=== PATIENT | female | born 1980 | race Caucasian/White ===

== ENCOUNTER → 2023-07-28 08:54 | Outpatient (CLI) | payer BC, SELFPAY ==
--- NOTE | ~2023-07-28 | MR_ITS ---
EXAMINATION: MR ankle RT wo con DATE: 07/28/2023 09:41 INDICATION: Right Achilles tendon tear/rupture. TECHNIQUE: Magnetic resonance imaging (MRI) of the right ankle was performed without intravenous cont rast. Sequences included sagittal, coronal, and axial proton-density weighted fast spin echo without and with fat saturation. COMPARISON: None. FINDINGS: Medial ankle ligaments: Deep and superficial deltoid ligaments as well as the spring ligament are normal. Lateral ankle ligaments: The anterior and posterior inferior tibiofibular ligaments are normal. The anterior talofibular, calc aneofibular and posterior talofibular ligaments are normal. Tendons: Minimal distal Achilles tendinosis without discrete tear. There is mild fluid signal along the periph jeffery of the Achilles tendon consistent with peritendinitis. The peroneus longus and brevis tendons are normal. The tibialis anterior and extensor hallucis longus and extensor digitorum longus tendons are normal. The tibialis posterior, flexor digitorum longus and flexor hallucis longus tendons are roni l. Plantar fascia: Mild thickening and increased signal of the central component of the proximal plantar aponeurosis con sistent with mild enthesopathy without surrounding edema to suggest acute plantar fasciitis. Bones/other: Bone alignment is normal. Low signal intensity bone island at the cuboid. Otherwise normal bone marro w signal throughout. No fracture or pathologic marrow replacing process. Fluid: Physiologic amount fluid in the joint spaces. No bursitis or other abnormal fluid collection. IMPRESSION: 1. Mild Achilles tendinosis and peritendinitis without discrete tear. 2. Mild enthesopathy at the proximal plantar aponeurosis. Reviewed, dictated and finalized at location A.
== END ==
DX: M25.571 Pain in right ankle and joints of right foot (principal); M79.671 Pain in right foot; M76.61 Achilles tendinitis, right leg
CPT/HCPCS: 73721

== ENCOUNTER 2024-09-25 12:19 | Emergency (ER) | payer OTHER, BC, SELFPAY ==
--- NOTE | ~2024-09-25 | XR_ITS ---
EXAMINATION: [id number] DATE: 09/25/2024 13:18 INDICATION: Left rib pain one week post trauma TECHNIQUE: A frontal inspiratory view of the chest and 3 views of the left ribs were obtained. COMPARISON: None FINDINGS: No rib fractures identified. No pneumothorax. No focal infiltrates, pleural effusion or pulmonary kena ma. Cardiomediastinal silhouette is normal. IMPRESSION: 1. No rib fracture or acute cardiopulmonary disease. Reviewed, dictated and finalized at location A. RESEARCHER
[2024-09-25 12:38] VITALS: BP 131/97; PULSE 79; RESP 15; TEMP 36.6; O2SAT 100
--- NOTE | 2024-09-25 13:02 | ED_ITS ---
HPI - General Adult General Chief complaint: Unspecified Stated complaint: INJURED L RIBS Time Seen by Provider: 09/25/24 13:02 Source: patient Mode of arrival: ambulatory Limitations: no limitations History of Present Illness HPI narrative: 43-year-old female presents with complaint of pain and swelling to left ribs for 1 week. Patient states she was walking and got ribs caught on railing . Has been taking [id number]-[id number] pain medications, continues to have discomfort. Is concerned for fracture. All systems reviewed and negative except as noted above. Related Data Home Medications Medication Instructions Recorded Confirmed No Home Medications 09/25/24 09/25/24 Allergies Allergy/AdvReac Type Severity Reaction Status Date / Time No Known Allergies Allergy Verified 09/25/24 13:04 Review of Systems Review of Systems: CONSTITUTIONAL: Denies fever, chills, or sweats. EYES: Denies visual changes, redness, or discharge. ENT: Denies rhinorrhea, congestion, sore throat, or otalgia. CARDIOVASCULAR: Denies chest pain, palpitations, or edema. RESPIRATORY: Denies cough or dyspnea. GASTROINTESTINAL: Denies abdominal pain, nausea, vomiting, or diarrhea. GENITOURINARY: Denies dysuria or hematuria. SKIN: Denies rash or itching. MUSCULOSKELETAL: Reports left rib pain and swelling. NEUROLOGIC: Denies headache, numbness, or weakness. PSYCHIATRIC: Denies anxiety or depression. All other systems reviewed are negative, except as documented in HPI. PMFSH Comments At time of signature, agree with nursing past medical, surgical, social and family history. There is no relevant family history pertinent to the presenting complaint. Exam Narrative: GENERAL: This is a well-nourished, well-developed patient, in no apparent distress. HEAD: normocephalic, atraumatic. EYES: PERRL. Sclera clear/white. Vision is grossly intact. EARS: External ears normal NOSE: External nose normal NECK: Neck supple, non-tender without lymphadenopathy, masses or thyromegaly. CARDIOVASCULAR: Regular rate and rhythm without murmurs, gallops, or rubs. RESPIRATORY: Clear to auscultation. Breath sounds equal bilaterally. No wheezes, rales, or rhonchi. SKIN: warm, Dry, intact with no suspicious lesions or rash, good texture and turgor. NEURO: awake, alert, and oriented to person, place and time. There were no obvious focal neurologic abnormalities. EXTREMITIES: No joint tenderness, effusion, or edema noted. Musculoskeletal: tenderness to anterior aspect of left ribs with mild swelling. No bruising noted. Course Course Level of Care: Express Care Visit Vital Signs Vital signs: Vital Signs Temperature 36.6 C 09/25/24 12:38 Pulse Rate 79 09/25/24 12:38 Respiratory Rate 15 09/25/24 12:38 Blood Pressure 131/97 H 09/25/24 12:38 Pulse Oximetry 100 09/25/24 12:38 Oxygen Delivery Room Air 09/25/24 12:38 Temperature 36.6 C 09/25/24 12:38 Pulse Rate 79 09/25/24 12:38 Respiratory Rate 15 09/25/24 12:38 Blood Pressure 131/97 H 09/25/24 12:38 Pulse Oximetry 100 09/25/24 12:38 Oxygen Delivery Room Air 09/25/24 12:38 Reviewed Medical Decision Making MDM Narrative Medical decision making narrative: Patient is aware of diagnosis, understands and agrees to treatment plan. Anticipatory guidance given. Patient agrees to follow-up as directed and is aware of reasons to seek care at the emergency department. Portions of this record may have been created with voice recognition software discussed x-ray results with patient. X-ray of left ribs negative for fract ure. Recommend she continue [id number] ibuprofen or Tylenol, ice for rib contusion. Patient is well-appearing, no respiratory distress. Vital Signs Vital Signs: Vital Signs Temperature 36.6 C 09/25/24 12:38 Pulse Rate 79 09/25/24 12:38 Respiratory Rate 15 09/25/24 12:38 Blood Pressure 131/97 H 09/25/24 12:38 Pulse Oximetry 100 09/25/24 12:38 Oxygen Delivery Room Air 09/25/24 12:38 Temperature 36.6 C 09/25/24 12:38 Pulse Rate 79 09/25/24 12:38 Respiratory Rate 15 09/25/24 12:38 Blood Pressure 131/97 H 09/25/24 12:38 Pulse Oximetry 100 09/25/24 12:38 Oxygen Delivery Room Air 09/25/24 12:38 Imaging Data My impression: Agree with radiologist Radiologist's impression: EXAMINATION: [id number] DATE: 09/25/2024 13:18 INDICATION: Left rib pain one week post trauma TECHNIQUE: A frontal inspiratory view of the chest and 3 views of the left ribs were obtained. COMPARISON: None FINDINGS: No rib fractures identified. No pneumothorax. No focal infiltrates, pleural effusion or pulmonary edema. Cardiomediastinal silhouette is normal. IMPRESSION: 1. No rib fracture or acute cardiopulmonary disease. Discharge Plan Discharge Clinical Impression: Contusion of rib on left side Patient Disposition: Home, Self-Care Condition: Stable Instructions: Rib Contusion (ED) Additional Instructions: The x-ray of your left ribs was negative for fracture. Take Tylenol or ibuprofen every 6-8 hours as needed for pain. Apply ice as needed for pain. Avoid activities that increase pain to left ribs. Follow-up with your doctor if pain is not improving. Prescriptions: No Action No Home Medications Follow-up/Referrals: PHYSICIAN,COMMUNICATIONS FIELD TECHNICIAN [Primary Care Provider] - Time of Disposition: 13:45
== END 2024-09-25 13:46 | disposition home or self-care (01) ==
PROVIDERS: Emergency Provider Nurse Practitioner Family
DX: S20.212A Contusion of left front wall of thorax, initial encounter (principal); W22.8XXA Striking against or struck by other objects, initial encounter
CPT/HCPCS: 71101; 99213; G0463